=== PATIENT | female | born 1955 | race American Indian/Alaskan Native ===

== ENCOUNTER 2018-05-22 07:32 | Emergency (ER) | payer OTHER ==
--- NOTE | 2018-05-22 08:06 | Emergency Department Report ---
ED General Adult HPI - General Chief complaint: Dizziness Stated complaint: ACHES/VOMIT Time Seen by Provider: 05/22/18 08:04 Source: patient Mode of arrival: Ambulatory Limitations: No Limitations - History of Present Illness Initial comments: 62 yo female with acute onset dizziness. she has hx of vertigo. no n/v. dizziness started when she got out of the bed this AM. she had to get a ride to the hospital. no n/v/d she is ambulatory but when sitting has her head in her hands. denies medical history or daily meds. -: Sudden Severity scale (0 -10): 0 Associated Symptoms: denies other symptoms - Related Data Previous Rx's Medication Instructions Recorded Last Taken Type Meclizine [Antivert] 25 mg PO TID PRN #20 tablet 05/22/18 Unknown Rx Allergies Allergy/AdvReac Type Severity Reaction Status Date / Time Penicillins Allergy Hives Verified 05/22/18 07:33 ED Review of Systems ROS: Stated complaint: ACHES/VOMIT Other details as noted in HPI Comment: All other systems reviewed and negative Constitutional: denies: see HPI Eyes: denies: eye pain Neurological: as per HPI, vertigo ED Past Medical Hx - Past Medical History Additional medical history: vertigo - Surgical History Additional Surgical History: Tubal ligation - Social History Smoking Status: Never Smoker Substance Use Type: None - Medications Home Medications: Home Medications Medication Instructions Recorded Confirmed Last Taken Type Meclizine [Antivert] 25 mg PO TID PRN #20 tablet 05/22/18 Unknown Rx ED Physical Exam - General Limitations: No Limitations General appearance: alert - Head Head exam: Present: atraumatic - Eye Eye exam: Present: normal appearance Pupils: Present: normal accommodation - ENT ENT exam: Present: mucous membranes moist - Neck Neck exam: Present: normal inspection - Respiratory Respiratory exam: Present: normal lung sounds bilaterally - Cardiovascular Cardiovascular Exam: Present: regular rate - GI/Abdominal GI/Abdominal exam: Present: soft - Rectal Rectal exam: Present: deferred - Extremities Exam Extremities exam: Present: normal inspection - Neurological Exam Neurological exam: Present: alert, oriented X3, CN II-XII intact, normal gait, other (patient has nystagmus with rapid head turned to the right. She also complains of subjective dizziness with rapid shifting of the head to the right. There is no nystagmus or dizziness with rapid change to the left. Patient is not orthostatic with an increase in heart rate of decrease in blood pressure when standing. There is no nausea vomiting or diarrhea. Patient denies any chest pain or shortness of breath. There is no focal neuro deficit.) - Psychiatric Psychiatric exam: Present: normal affect, normal mood - Skin Skin exam: Present: warm ED Course Vital Signs 05/22/18 05/22/18 07:45 09:50 Temperature 97.6 F 97.9 F Pulse Rate 73 70 Respiratory 18 18 Rate Blood Pressure 171/82 Blood Pressure 153/74 [Left] O2 Sat by Pulse 100 100 Oximetry ED Medical Decision Making - Lab Data Result diagrams: 05/22/18 08:12 05/22/18 08:12 - EKG Data -: EKG Interpreted by Me EKG shows normal: sinus rhythm Rate: normal - EKG Data Interpretation: no acute changes - Medical Decision Making a/c vertigo acute onset no neuro def CN intact no cp or sob nystgmus and dizzy with rapid head to l; not right no n/v/d antivert given with relief in symptoms repeat vs normal and pt ambulatory without symptoms discussed with pt and she is to follow up for recheck - Differential Diagnosis vertigo hx Critical care attestation.: If time is entered above; I have spent that time in minutes in the direct care of this critically ill patient, excluding procedure time. ED Disposition Clinical Impression: Vertigo Disposition: DC-01 TO HOME OR SELFCARE Is pt being admited?: No Does the pt Need Aspirin: No Condition: Stable Instructions: Vertigo (ED) Additional Instructions: FOLLOW UP WITH PCP IN 24 HOURS DIET AND ACTIVITY TOLERATED HYDRATE WELL WITH WATER MED ORDERED TODAY RETURN TO ER FOR WORSENING SYMPTOMS Prescriptions: Meclizine [Antivert] 25 mg PO TID PRN #20 tablet PRN Reason: Vertigo Referrals: BLUE NEWSOME DO [Primary Care Provider] - 3-5 Days Time of Disposition: 09:53
[2018-05-22 08:24] LABS: Basophils % (Auto) 0.8 % (0.0-1.8); Eosinophils # (Auto) 0.1 K/mm3 (0.0-0.4); Hemoglobin 12.3 gm/dl (10.1-14.3); Lymphocytes # (Auto) 1.2 K/mm3 (1.2-5.4); Lymphocytes % (Auto) 22.9 % (13.4-35.0); Mean Corpuscular HGB Conc 34 % (30-34); Mean Corpuscular Volume 92 fl (79-97); Monocytes # (Auto) 0.2 K/mm3 (0.0-0.8); Platelet Count 221 K/mm3 (140-440); Red Blood Count 3.93 M/mm3 (3.65-5.03); Red Cell Distribution Width 13.2 % (13.2-15.2)
[2018-05-22] MEDS ORDERED: ANTIVERT PO ONE (08:29)
[2018-05-22 08:39] LABS: Alanine Aminotransferase 13 units/L (7-56); Albumin 4.5 g/dL (3.9-5); BUN/Creatinine Ratio 22; Blood Urea Nitrogen 11 mg/dL (7-17); Calcium 9.1 mg/dL (8.4-10.2); Hemolysis Index 23
[2018-05-22 08:54] LABS: Bacteria,Urine 1+ /HPF (Negative); Bilirubin,Urine NEG (Negative); Blood,Urine NEG (Negative); Color,Urine Straw (Yellow); Mucus,Urine FEW /HPF; Protein,Urine <15 mg/dL mg/dL (Negative); Urobilinogen,Urine < 2.0 mg/dL (<2.0)
[2018-05-22 09:51] VITALS: BP 153/74
== END 2018-05-22 10:12 | disposition home or self-care (01) ==
LOC: ED 07:32
DX: R42 Dizziness and giddiness (principal); Z98.51 Tubal ligation status; Z88.0 Allergy status to penicillin
CPT/HCPCS: 36415; 80053; 81001; 85025; 93005; 93010; 99283